=== PATIENT | male | born 1975 | race Caucasian/White ===

== ENCOUNTER 2017-07-24 13:54 | Observation (INO) | payer BC ==
--- NOTE | 2017-07-24 14:39 | C.PDOC ---
History Of Present Illness 41 y/o M c no PMHx p/w chest pain x 5 days. Intermittent. L sided chest, L shoulder. 2/10 in severity. Stabbing in character. No relation to exertion or movement. Also painful to R sided chest when taking deep breath. Denies palpitations, nausea, vomiting, diarrhea, constipation, dyspnea, calf pain, fever, chills. PMD Monika Vera. Time Seen by Provider: 07/24/17 14:07 Chief Complaint (Nursing): Chest Pain Past Medical History Vital Signs: Last Vital Signs Temp 98.8 F 07/24/17 14:02 Pulse 106 H 07/24/17 16:21 Resp 20 07/24/17 16:21 BP 116/86 07/24/17 16:21 Pulse Ox 96 07/24/17 16:21 Family History: States: Diabetes (father) - Social History Hx Alcohol Use: Yes Hx Substance Use: No Review Of Systems Except As Marked, All Systems Reviewed And Found Negative. Constitutional: Negative for: Fever Respiratory: Negative for: Shortness of Breath Physical Exam - Physical Exam Additional Physical Exam Comments: Constitutional: No acute distress. Head: Normocephalic. Atraumatic. Eyes: PERRL. ENT: Moist mucous membranes. Neck: Supple. Cardiovascular: Tachycardic. Radial pulse 2+ bilaterally. Chest: No tenderness. Respiratory: Clear to auscultation bilaterally. GI: Soft. Nontender. Nondistended. Back: No CVA tenderness. Musculoskeletal: No tenderness or swelling of extremities. Skin: No rash. Neurologic: Alert, no focal deficit. ED Course And Treatment - Laboratory Results Result Diagrams: 07/24/17 15:07 07/24/17 15:07 O2 Sat by Pulse Oximetry: 96 Medical Decision Making Medical Decision Making: Differential: Chest wall pain, ACS EKG: NSR 114 bpm, no ST elevations CXR HISTORY: cp COMPARISON: None available. TECHNIQUE: Chest, one view. FINDINGS: Examination limited by habitus and hypoinflation. LUNGS: No focal consolidation. Please note that chest x-ray has limited sensitivity for the detection of pulmonary masses. PLEURA: No significant pleural effusion identified. No definite pneumothorax . CARDIOVASCULAR: The cardiomediastinal silhouette appears within normal limits of size. OSSEOUS STRUCTURES: No acute osseous abnormality identified. VISUALIZED UPPER ABDOMEN: Unremarkable. OTHER FINDINGS: None. IMPRESSION: No focal consolidation, significant pleural effusion, or definite pneumothorax identified. Dr. Vera accepts patient to observation for cardiac rule out. Disposition Discussed With DrLakia: Julian Vera - Disposition Disposition: HOSPITALIZED Disposition Time: 15:54 Condition: FAIR Forms: [employer] (Chinese) - POA Core Measure Indicators: Chest Pain - Clinical Impression Clinical Impression: Chest pain
[2017-07-24 15:15] LABS: BASO % 0.3 % (0.0-2.0); EOS # 0.1 K/uL (0.0-0.7); EOS % 1.4 % (0.0-4.0); HEMOGLOBIN 16.1 g/dL (12.0-18.0); LYMPH # 1.2 K/uL (1.0-4.3); LYMPH % 16.2 % (20.0-40.0); MEAN CELL VOLUME 85.8 fL (80.0-94.0); MEAN CORPUSCULAR HEMOGLOBIN 29.3 pg (27.0-31.0); MEAN CORPUSCULAR HGB CONC 34.1 g/dL (33.0-37.0); MEAN PLATELET VOLUME 7.7 fL (7.2-11.7); MONO # 0.6 K/uL (0.0-0.8); MONO % 8.8 % (0.0-10.0); NEUT # 5.3 K/uL (1.8-7.0); NEUT % 73.3 % (50.0-75.0); NRBC % 0.2 % (0.0-2.0); RBC 5.5 Mil/uL (4.40-5.90); WHITE BLOOD COUNT 7.2 K/uL (4.8-10.8)
[2017-07-24 15:22] LABS: PROTHROMBIN TIME 11.2 SECONDS (9.7-12.2)
--- NOTE | 2017-07-24 15:25 | RAD ---
HISTORY: cp COMPARISON: None available. TECHNIQUE: Chest, one view. FINDINGS: Examination limited by habitus and hypoinflation. LUNGS: No focal consolidation. Please note that chest x-ray has limited sensitivity for the detection of pulmonary masses. PLEURA: No significant pleural effusion identified. No definite pneumothorax . CARDIOVASCULAR: The cardiomediastinal silhouette appears within normal limits of size. OSSEOUS STRUCTURES: No acute osseous abnormality identified. VISUALIZED UPPER ABDOMEN: Unremarkable. OTHER FINDINGS: None. IMPRESSION: No focal consolidation, significant pleural effusion, or definite pneumothorax identified.
[2017-07-24 15:33] LABS: ALB/GLOB RATIO 1.2 (1.0-2.1); ALBUMIN 4.3 g/dL (3.5-5.0); ALT/SGPT 59 U/L (21-72); AST/SGOT 63 U/L (17-59); BLOOD UREA NITROGEN 17 mg/dL (9-20); CALCIUM 8.5 mg/dl (8.6-10.4); GFR AFRICAN-AMERICAN > 60; GFR NON-AFRICAN AMERICAN > 60; LIPASE 71 U/L (23-300)
[2017-07-24 15:47] LABS: CK-MB 2.45 ng/mL (0.0-3.38)
--- NOTE | 2017-07-24 19:42 | CP.PCM.HP ---
Past Patient History - Past Social History Smoking Status: Current Some Days Smoker - MUSCULOSKELETAL/RHEUMATOLOGICAL Hx Musculoskeletal Disorders: Yes Other/Comment: Knee problems - PSYCHIATRIC Hx Substance Use: No - SURGICAL HISTORY Hx Surgeries: No Meds Allergies/Adverse Reactions: Allergies Allergy/AdvReac Type Severity Reaction Status Date / Time No Known Allergies Allergy Verified 07/24/17 14:17 Physical Exam - Constitutional Appears: Well - Head Exam Head Exam: ATRAUMATIC, NORMAL INSPECTION, NORMOCEPHALIC - Eye Exam Eye Exam: EOMI, Normal appearance, PERRL Pupil Exam: NORMAL ACCOMODATION, PERRL - ENT Exam ENT Exam: Mucous Membranes Moist, Normal Exam - Neck Exam Neck exam: Positive for: Normal Inspection - Respiratory Exam Respiratory Exam: Decreased Breath Sounds - Cardiovascular Exam Cardiovascular Exam: REGULAR RHYTHM, +S1, +S2 - GI/Abdominal Exam GI & Abdominal Exam: Diminished Bowel Sounds, Soft - Rectal Exam Rectal Exam: Deferred Results - Vital Signs Recent Vital Signs: Last Vital Signs Temp 98.8 F 07/24/17 14:02 Pulse 106 H 07/24/17 17:49 Resp 18 07/24/17 17:49 BP 121/83 07/24/17 17:49 Pulse Ox 96 07/24/17 17:49 - Labs Result Diagrams: 07/24/17 15:07 07/24/17 15:07 Labs: Laboratory Results - last 24 hr 07/24/17 07/24/17 07/24/17 15:07 15:07 15:07 WBC 7.2 RBC 5.50 Hgb 16.1 Hct 47.2 MCV 85.8 MCH 29.3 MCHC 34.1 RDW 14.0 Plt Count 215 MPV 7.7 Neut % (Auto) 73.3 Lymph % (Auto) 16.2 L Dyer % (Auto) 8.8 Eos % (Auto) 1.4 Baso % (Auto) 0.3 Neut # 5.3 Lymph # 1.2 Dyer # 0.6 Eos # 0.1 Baso # 0.0 PT 11.2 INR 1.0 APTT 29 D-Dimer, Quantitative 201 Sodium 132 Potassium 3.8 Chloride 97 L Carbon Dioxide 25 Anion Gap 14 BUN 17 Creatinine 0.7 L Est GFR ( Amer) > 60 Est GFR (Non-Af Amer) > 60 Random Glucose 118 H Calcium 8.5 L Total Bilirubin 0.6 AST 63 H ALT 59 Alkaline Phosphatase 68 Total Creatine Kinase 314 H CK-MB (Mass) 2.45 Troponin I < 0.0120 Total Protein 7.8 Albumin 4.3 Globulin 3.5 Albumin/Globulin Ratio 1.2 Lipase 71
[2017-07-24] MEDS ORDERED: Aluminum Hydroxide/Magnesium Hydroxide Susp (30 mL) PO ONE (23:03)
[2017-07-24 23:17] LABS: CK-MB 1.42 ng/mL (0.0-3.38)
[2017-07-25] MEDS ORDERED: Enoxaparin 40 mg Syringe SC SCH (10:00)
[2017-07-25] MEDS ORDERED: Pantoprazole 40 mg EC Tab PO SCH (10:00)
--- NOTE | 2017-07-25 15:13 | CP.PCM.PN ---
Subjective - Date & Time of Evaluation Date of Evaluation: 07/25/17 Time of Evaluation: 12:40 - Subjective Subjective: clinically same Objective - Vital Signs/Intake and Output Vital Signs (last 24 hours): Temp Pulse Resp BP Pulse Ox 98.0 F 60 18 164/75 H 98 07/25/17 07:00 07/25/17 07:00 07/25/17 07:00 07/25/17 07:00 07/25/17 07:00 Intake and Output: 07/25/17 07/25/17 06:59 18:59 Intake Total 600 Balance 600 - Medications Medications: Current Medications Aspirin (Aspirin) 325 mg PO DAILY [facility] Last Admin: 07/25/17 09:30 Dose: 325 mg Enoxaparin Sodium (Lovenox) 40 mg SC DAILY [facility] Last Admin: 07/25/17 09:29 Dose: 40 mg Pantoprazole Sodium (Protonix Ec Tab) 40 mg PO DAILY [facility] Last Admin: 07/25/17 09:30 Dose: 40 mg - Labs Labs: 07/24/17 15:07 07/24/17 15:07 PT 11.2 SECONDS (9.7-12.2) 07/24/17 15:07 INR 1.0 07/24/17 15:07 APTT 29 SECONDS (21-34) 07/24/17 15:07
[2017-07-25 15:42] VITALS: PULSE 103
[2017-07-25 16:09] VITALS: BP 115/84; RESP 20; TEMP 98.4; O2SAT 95
--- NOTE | 2017-07-25 21:52 | CP.PCM.CON ---
History of Present Illness - History of Present Illness History of Present Illness: Patient seen and evaluated by me CC: Chest Pain HPI: 41 m with no significant risk factors admitted with chest pain Chest pain non exertional Denes dyspnea Trop x 3 normal EKG: Sinus Tachy HR 114 D Dimer: Normal D/C patient home. Chest pain likely muscular Patient advised to follow up me in 1-2 weeks Patient agreed Past Patient History - Past Medical History & Family History Past Medical History?: Yes - Past Social History Smoking Status: Current Some Days Smoker - CARDIAC Hx Cardiac Disorders: No - PULMONARY Hx Respiratory Disorders: No - NEUROLOGICAL Hx Neurological Disorder: No - HEENT Hx HEENT Problems: No - RENAL Hx Chronic Kidney Disease: No - ENDOCRINE/METABOLIC Hx Endocrine Disorders: No - HEMATOLOGICAL/ONCOLOGICAL Hx Blood Disorders: No - INTEGUMENTARY Hx Dermatological Problems: No - MUSCULOSKELETAL/RHEUMATOLOGICAL Hx Musculoskeletal Disorders: Yes Other/Comment: Knee problems - GASTROINTESTINAL Hx Gastrointestinal Disorders: No - GENITOURINARY/GYNECOLOGICAL Hx Genitourinary Disorders: No - PSYCHIATRIC Hx Substance Use: No - SURGICAL HISTORY Hx Surgeries: No - ANESTHESIA Hx Anesthesia: No Hx Anesthesia Reactions: No Hx Malignant Hyperthermia: No Has any member of the family had a problem w/ anesthesia?: No Meds Allergies/Adverse Reactions: Allergies Allergy/AdvReac Type Severity Reaction Status Date / Time No Known Allergies Allergy Verified 07/24/17 14:17 Results - Vital Signs Recent Vital Signs: Last Vital Signs Temp 98.4 F 07/25/17 15:20 Pulse 103 H 07/25/17 15:30 Resp 20 07/25/17 15:20 BP 115/84 07/25/17 15:20 Pulse Ox 95 07/25/17 15:20 - Labs Result Diagrams: 07/24/17 15:07 07/24/17 15:07 Labs: Laboratory Results - last 24 hr 07/24/17 07/25/17 07/25/17 22:51 07:26 16:44 D-Dimer, Quantitative < 200 Total Creatine Kinase 254 H 190 H CK-MB (Mass) 1.42 1.00 Troponin I < 0.0120 < 0.0120
--- NOTE | 2017-07-28 14:28 | CARD ---
APPROVED REPORT EKG Measurement Heart [id number] [place] [id number] <Conclusion> Sinus tachycardia Otherwise normal ECG
== END 2017-07-25 18:09 | disposition home or self-care (01) ==
LOC: C.ER 13:54 → C.9E 17:28 → C.6T 18:23
PROVIDERS: ADMIT Internal Medicine Nephrology; ATTEND Internal Medicine Nephrology
DX: R07.89 Other chest pain (principal); Z87.891 Personal history of nicotine dependence
CPT/HCPCS: 36415; 71010; 80053; 82550; 82553; 83690; 84484; 85025; 85378; 85610; 85730; 93005; 96372; 99285; G0378; J1650